=== PATIENT | female | born 2000 | race Native Hawaiian/Other Pacific Islander ===

== ENCOUNTER 2019-05-18 08:23 | Emergency (ER) | payer SELFPAY ==
[2019-05-18 08:45] VITALS: BP 130/86
--- NOTE | 2019-05-18 09:05 | UC ---
Throat Pain/Nasal Aba HPI - HPI Summary HPI Summary: PATIENT HAS HAD SORE THROAT AND PAIN WITH SWALLOWING FOR ABOUT 2 WEEKS. DEVELOP FEVER 101 SEVERAL DAYS AGO THAT IS SINCE RESOLVED. PARTNER HAS SIMILAR SYMPTOMS. - History of Current Complaint Chief Complaint: UCRespiratory Stated Complaint: SORE THROAT Time Seen by Provider: 05/18/19 08:50 Hx Obtained From: Patient Hx Last Menstrual Period: 05/18/19 Onset/Duration: Gradual Onset, Lasting Weeks, Still Present Severity: Moderate Pain Intensity: 8 Pain Scale Used: 0-10 Numeric Cough: None Associated Signs & Symptoms: Positive: Fever - Allergies/Home Medications Allergies/Adverse Reactions: Allergies Allergy/AdvReac Type Severity Reaction Status Date / Time Penicillins Allergy See Comment Verified 05/18/19 08:44 shellfish derived Allergy Anaphylatic Verified 05/18/19 08:44 Shock Home Medications: Home Medications Ibuprofen 1 tab PO ONCE PRN 05/18/19 [History Confirmed 05/18/19] guaiFENesin [Mucinex] 1 tab PO ONCE PRN 05/18/19 [History Confirmed 05/18/19] PMH/Surg Hx/FS Hx/Imm Hx Previously Healthy: Yes - Surgical History Surgical History: None - Family History Known Family History: Positive: Non-Contributory - Social History Alcohol Use: Occasionally Substance Use Type: None Smoking Status (MU): Former Smoker Review of Systems All Other Systems Reviewed And Are Negative: Yes Constitutional: Positive: Fever, Fatigue ENT: Positive: Sore Throat Respiratory: Positive: Negative Cardiovascular: Positive: Negative Gastrointestinal: Positive: Negative Physical Exam Triage Information Reviewed: Yes Appearance: Well-Appearing, No Pain Distress, Well-Nourished Vital Signs: Initial Vital Signs Temp 97.3 F 05/18/19 08:39 Pulse 83 05/18/19 08:39 Resp 18 05/18/19 08:39 BP 130/86 05/18/19 08:39 Pulse Ox 100 05/18/19 08:39 Laboratory Tests 05/18/19 09:01 Group A Strep Rapid Negative Eyes: Positive: Conjunctiva Clear ENT: Positive: Hearing grossly normal, Pharyngeal erythema, TMs normal, Tonsillar swelling, Tonsillar exudate Neck: Positive: Supple, Nontender, No Lymphadenopathy Respiratory Exam: Normal Cardiovascular Exam: Normal Abdomen Description: Positive: Soft Musculoskeletal: Positive: No Edema Neurological: Positive: Alert Psychological: Positive: Age Appropriate Behavior Skin: Negative: Rashes Throat Pain/Nasal Course/Dx - Course Course Of Treatment: STREP NEGATIVE. CONSIDER INFECTIOUS MONONUCLEOSIS. CBC AND MONOSPOT DRAWN TODAY. WILL TREAT WITH PREDNISONE AND MAGIC MOUTHWASH. ADVISED TO STAY WELL HYDRATED AND TAKE IBUPROFEN NEEDED. - Differential Dx/Diagnosis Provider Diagnosis: Acute viral tonsillitis Discharge ED - Sign-Out/Discharge Documenting (check all that apply): Patient Departure All imaging exams completed and their final reports reviewed: No Studies - Discharge Plan Condition: Stable Disposition: HOME Prescriptions: Magic Mouth Was-RAMY/MAAL/LIDO* 5 - 10 ml SWISH SWAL QID PRN #150 ml PRN Reason: Sore Throat predniSONE 20 mg TAB [Deltasone 20 MG TAB*] 40 mg PO DAILY #10 tab Patient Education Materials: Tonsillitis (ED) Referrals: [facility] [Outside] - If Needed Additional Instructions: STREP NEGATIVE. MAGIC MOUTHWASH AND/OR IBUPROFEN FOR SORE THROAT NEEDED DO NOT SHARE FOOD, DRINK, UTENSILS YOUR SYMPTOMS ARE LIKELY VIRALLY MEDIATED AND SHOULD RESOLVE ON THEIR OWN WITH TIME. CONSIDER MONONUCLEOSIS. BLOOD TESTED TO FURTHER EVALUATE. NO INDICATION FOR ANTIBIOTICS AT PRESENT. REST, HYDRATE, OTC MEDS NEEDED. WILL TREAT WITH PREDNISONE TO HELP WITH INFLAMMATION. SEEK FOLLOW-UP IF YOU ARE NOT IMPROVING OVER THE NEXT COUPLE OF WEEKS. CALL THE NUMBER BELOW FOR ASSISTANCE IN ESTABLISHING WITH A PCP An additional resource available to assist in finding the appropriate physician for your health care needs is [facility] ([facility] [place]). You may contact them by calling [phone]. - Billing Disposition and Condition Condition: STABLE Disposition: Home
[2019-05-18 12:45] LABS: ABS Eosinophils 0.1 10^3/ul (0-0.6); ABS Lymphocytes 1.8 10^3/ul (1.0-4.8); ABS Monocytes 1.1 10^3/ul (0-0.8); ABS Neutrophils 6.9 10^3/ul (1.5-7.7); Eosinophil % 0.9 %; Hematocrit 39 % (35-47); Hemoglobin 13.5 g/dL (12.0-16.0); Lymphocyte % 17.9 %; Mean Corpuscular HGB Conc 35 g/dL (31-36); Mean Corpuscular Hemoglobin 29 pg (27-31); Mean Corpuscular Volume 83 fL (80-97); Mean Platelet Volume 7.8 fL (7.4-10.4); Nucleated Red Blood Cells % 0.4; Platelet Count 276 10^3/uL (150-450); Red Blood Count 4.74 10^6 /uL (3.70-4.87); Red Cell Distribution Width 13 % (10-15); White Blood Count 9.9 10^3/uL (3.5-10.8)
--- NOTE | 2019-05-19 07:00 | UC ---
- Progress Note Progress Note: cbc with diff reviewed mono spot neg no change ljj Course/Dx - Diagnoses Provider Diagnoses: Acute viral tonsillitis Discharge ED - Sign-Out/Discharge Documenting (check all that apply): Post-Discharge Follow Up All imaging exams completed and their final reports reviewed: No Studies - Discharge Plan Condition: Stable Disposition: HOME Prescriptions: Magic Mouth Was-RAMY/MAAL/LIDO* 5 - 10 ml SWISH SWAL QID PRN #150 ml PRN Reason: Sore Throat predniSONE 20 mg TAB [Deltasone 20 MG TAB*] 40 mg PO DAILY #10 tab Patient Education Materials: Tonsillitis (ED) Referrals: [facility] [Outside] - If Needed Additional Instructions: STREP NEGATIVE. MAGIC MOUTHWASH AND/OR IBUPROFEN FOR SORE THROAT NEEDED DO NOT SHARE FOOD, DRINK, UTENSILS YOUR SYMPTOMS ARE LIKELY VIRALLY MEDIATED AND SHOULD RESOLVE ON THEIR OWN WITH TIME. CONSIDER MONONUCLEOSIS. BLOOD TESTED TO FURTHER EVALUATE. NO INDICATION FOR ANTIBIOTICS AT PRESENT. REST, HYDRATE, OTC MEDS NEEDED. WILL TREAT WITH PREDNISONE TO HELP WITH INFLAMMATION. SEEK FOLLOW-UP IF YOU ARE NOT IMPROVING OVER THE NEXT COUPLE OF WEEKS. CALL THE NUMBER BELOW FOR ASSISTANCE IN ESTABLISHING WITH A PCP An additional resource available to assist in finding the appropriate physician for your health care needs is [facility] ([facility] [place]). You may contact them by calling [phone]. - Billing Disposition and Condition Condition: STABLE Disposition: Home
== END 2019-05-18 10:30 | disposition home or self-care (01) ==
LOC: UCEAST 08:23
DX: J03.80 Acute tonsillitis due to other specified organisms (principal); B97.89 Other viral agents as the cause of diseases classified elsewhere; R53.83 Other fatigue; Z88.0 Allergy status to penicillin; Z91.013 Allergy to seafood; Z87.891 Personal history of nicotine dependence
CPT/HCPCS: 36415; 85025; 86308; 87651; 99202; G0463

== ENCOUNTER 2022-07-16 08:43 | Inpatient (IN) ==
[2022-07-16] MEDS ORDERED: Methylergonovine 0.2 mg AMPULE 1 ml AMP ONE (09:23)
[2022-07-16 09:35] LABS: ABS Basophils 0.1 10^3/ul (0-0.2); ABS Eosinophils 0.1 10^3/ul (0-0.6); ABS Monocytes 0.9 10^3/ul (0-0.8); ABS Neutrophils 9.1 10^3/ul (1.5-7.7); Eosinophil % 0.8 %; Hematocrit 34 % (35-47); Hemoglobin 11.5 g/dL (12.0-16.0); Lymphocyte % 16.4 %; Mean Corpuscular HGB Conc 34 g/dL (31-36); Mean Corpuscular Hemoglobin 27 pg (27-31); Mean Corpuscular Volume 79 fL (80-97); Mean Platelet Volume 9.2 fL (7.4-10.4); Platelet Count 221 10^3/uL (150-450); Red Blood Count 4.33 10^6 /uL (3.70-4.87); Red Cell Distribution Width 14 % (10-15); White Blood Count 12.1 10^3/uL (3.5-10.8)
[2022-07-16] MEDS ORDERED: Buffered Lidocaine 1% SYRIN 1 ml INTRADERM ONE (09:39)
[2022-07-16] MEDS ORDERED: Dibucaine 1% OINT 28.35 GM TUBE PR PRN (09:50)
[2022-07-16] MEDS ORDERED: Oxytocin 10 UNITS/ML 1 ML VIAL IM ONE (09:50)
[2022-07-16] MEDS ORDERED: Witch Hazel PAD JAR TOPICAL PRN (09:50)
[2022-07-16] MEDS ORDERED: Methylergonovine 0.2 mg AMPULE 1 ml AMP IM ONE (09:50)
[2022-07-16 12:37] LABS: Urine Benzodiazepine Screen None Detected (None Detect); Urine Cannabinoids Screen None Detected (None Detect); Urine Opiates Screen None Detected (None Detect)
[2022-07-17 07:17] VITALS: BP 120/58
[2022-07-17 07:49] LABS: ABS Basophils 0.1 10^3/ul (0-0.2); ABS Eosinophils 0.1 10^3/ul (0-0.6); ABS Lymphocytes 3.4 10^3/ul (1.0-4.8); ABS Monocytes 0.9 10^3/ul (0-0.8); ABS Neutrophils 8.6 10^3/ul (1.5-7.7); Eosinophil % 0.8 %; Hematocrit 29 % (35-47); Hemoglobin 9.5 g/dL (12.0-16.0); Lymphocyte % 25.7 %; Mean Corpuscular HGB Conc 32 g/dL (31-36); Mean Corpuscular Hemoglobin 26 pg (27-31); Mean Corpuscular Volume 80 fL (80-97); Mean Platelet Volume 9.1 fL (7.4-10.4); Platelet Count 235 10^3/uL (150-450); Red Blood Count 3.67 10^6 /uL (3.70-4.87); Red Cell Distribution Width 14 % (10-15)
== END 2022-07-17 16:14 | disposition home or self-care (01) | DRG 560 ==
LOC: MCHOBOUT 08:43 → MCHOB 08:57
PROVIDERS: ADMIT Registered Nurse; ATTEND Registered Nurse